=== PATIENT | male | born 1935 | race Caucasian/White ===

== ENCOUNTER 2022-03-21 07:28 | Observation (INO) ==
[2022-03-21 08:02] LABS: Basophils % 0.4 % (0.0-0.8); Eosinophils # 0.4 10*3/uL (0.0-0.87); Eosinophils % 5.7 % (0.00-10.9); Hematocrit 36.1 VOL% (42.0-52.0); Hemoglobin 11.6 GM/DL (14.0-18.0); Immature Granulocytes % 0.3 %; Immature Granulocytes Absolute 0.02 #; Lymphocytes # 2.8 10*3/uL (1.4-4.0); Lymphocytes % 36.6 % (21.2-54.2); Mean Corpuscular HGB Conc 32.1 GM/DL (32-36); Mean Platelet Volume 8.6 FL (9.6-12.0); Monocytes # 0.7 10*3/uL (0.11-0.8); Monocytes % 9.4 % (1.7-12.7); Neutrophils % 47.6 % (38.7-73.9); Platelet Count 153 T/CUMM (130-400); Red Blood Count 3.72 MC/CUMM (3.8-5.5); White Blood Count 7.7 T/CUMM (4-12)
[2022-03-21] MEDS ORDERED: ASPIRIN 325 MG TABLET PO STA (08:02)
[2022-03-21] MEDS ORDERED: NITROGLYCERIN SL 0.4 MG TABLET SL PRN (08:02)
[2022-03-21 08:24] LABS: Albumin 3.6 G/DL (3.4-5.0); Bilirubin,Total 0.4 MG/DL (0.20-1.00); Calcium 9.3 MG/DL (8.5-10.1); Osmolality,Calculated 267.8 MOS/KG (273-304); Potassium 5.4 MMOL/L (3.5-5.1); Total Protein 7.3 G/DL (6.4-8.2)
[2022-03-21] MEDS ORDERED: BISACODYL 5 MG TABLET PO PRN (09:25)
[2022-03-21] MEDS ORDERED: ACETAMINOPHEN 325 MG TABLET PO PRN (09:25)
[2022-03-21] MEDS ORDERED: CALCIUM CARBONATE CHEW 500 MG TABLET PO PRN (09:25)
[2022-03-21] MEDS ORDERED: ONDANSETRON 4 MG/2 ML VIAL IV PRN (09:25)
[2022-03-21] MEDS ORDERED: SIMETHICONE CHEW 125 MG TABLET PO PRN (09:25)
[2022-03-21] MEDS ORDERED: ZALEPLON 5 MG CAPSULE PO PRN (09:25)
[2022-03-21] MEDS ORDERED: ALUMINUM/MAGNES/SIMETH MAX STR 30 ML UDCUP PO PRN (09:25)
[2022-03-21] MEDS ORDERED: LACTULOSE 20 GM/30 ML UDCUP PO PRN (09:25)
[2022-03-21] MEDS ORDERED: MORPHINE 2 MG/1 ML SYRINGE IV PRN (09:25)
[2022-03-21] MEDS: ENOXAPARIN 40 MG/0.4 ML SYRINGE SUBCUT SCH (10:23)
[2022-03-21] MEDS ORDERED: GLUCAGON 1 MG VIAL IM PRN (11:23)
[2022-03-21] MEDS ORDERED: METOPROLOL SUCCINATE XL 25 MG TABLET PO ONE (11:26)
[2022-03-21] MEDS ORDERED: DEXTROSE 10% 250 ML BAG IV PRN (11:38)
[2022-03-21] MEDS ORDERED: ALUM/MAG/SIMETH/LIDO VISC 1:1 30 ML BOTTLE PO STA (12:25)
[2022-03-21] MEDS: INSULIN LISPRO 100 UNIT/ML SUBCUT SCH ×3 (12:59→21:02)
[2022-03-21] MEDS ORDERED: ASPIRIN EC 81 MG TABLET PO SCH (21:00)
[2022-03-21] MEDS ORDERED: ATORVASTATIN 20 MG TABLET PO SCH (21:00)
[2022-03-21] MEDS: OMEGA 3 ACID ETHYL ESTERS 1 GM CAPSULE PO SCH (21:01)
[2022-03-22 05:26] LABS: Basophils % 0.4 % (0.0-0.8); Eosinophils # 0.2 10*3/uL (0.0-0.87); Eosinophils % 3.2 % (0.00-10.9); Hemoglobin 10.9 GM/DL (14.0-18.0); Immature Granulocytes % 0.5 %; Immature Granulocytes Absolute 0.04 #; Lymphocytes # 1.4 10*3/uL (1.4-4.0); Lymphocytes % 19.4 % (21.2-54.2); Mean Corpuscular HGB Conc 32.1 GM/DL (32-36); Mean Corpuscular Volume 96.9 FL (87-102); Mean Platelet Volume 8.9 FL (9.6-12.0); Monocytes # 0.8 10*3/uL (0.11-0.8); Monocytes % 10.8 % (1.7-12.7); Neutrophils % 65.7 % (38.7-73.9); Platelet Count 141 T/CUMM (130-400); Red Blood Count 3.51 MC/CUMM (3.8-5.5); Red Cell Distribution Width 12.9 % (9.3-17.3); White Blood Count 7.4 T/CUMM (4-12)
[2022-03-22 05:42] LABS: Calcium 9.2 MG/DL (8.5-10.1); Osmolality,Calculated 268.7 MOS/KG (273-304); Potassium 5.5 MMOL/L (3.5-5.1)
[2022-03-22] MEDS ORDERED: TAMSULOSIN 0.4 MG CAPSULE PO SCH (09:00)
[2022-03-22] MEDS ORDERED: VALSARTAN 80 MG TABLET PO SCH (09:00)
[2022-03-22] MEDS ORDERED: METOPROLOL SUCCINATE XL 25 MG TABLET PO SCH (09:00)
[2022-03-22] MEDS ORDERED: FUROSEMIDE 20 MG TABLET PO SCH (09:00)
[2022-03-22] MEDS ORDERED: PANTOPRAZOLE 40 MG TABLET PO SCH (09:00)
[2022-03-22] MEDS: OMEGA 3 ACID ETHYL ESTERS 1 GM CAPSULE PO SCH (09:05)
[2022-03-22] MEDS: ENOXAPARIN 40 MG/0.4 ML SYRINGE SUBCUT SCH (09:06)
[2022-03-22] MEDS: INSULIN LISPRO 100 UNIT/ML SUBCUT SCH ×2 (09:07→11:46)
[2022-03-22] MEDS ORDERED: SODIUM POLYSTYRENE SULFATE 15 GM/60 ML BOTTLE PO STA (10:21)
[2022-03-22 15:32] VITALS: BP 128/72
[2022-03-22] MEDS ORDERED: ATORVASTATIN 40 MG TABLET PO SCH (21:00)
[2022-03-23] MEDS ORDERED: amLODIPine 5 MG TABLET PO SCH (09:00)
[2022-03-23] MEDS ORDERED: LEVOFLOXACIN 500 MG TABLET PO SCH (09:00)
[2022-03-23] MEDS ORDERED: FUROSEMIDE 40 MG TABLET PO SCH (09:00)
== END 2022-03-22 15:06 | disposition home or self-care (01) ==
LOC: N.ED 07:28 → N.EDINP 07:28 → N.TELEN 12:18
PROVIDERS: ADMIT Internal Medicine Cardiovascular Disease; ATTEND Internal Medicine Cardiovascular Disease